=== PATIENT | female | born 1945 | race Two or more races ===

== ENCOUNTER 2022-03-04 17:48 | Emergency (ER) | payer OTHER ==
[~2022-03-04] VITALS: Ht 152.4 cm; Wt 58.1 kg
[2022-03-04] MEDS ORDERED: LOSARTAN (18:25)
[2022-03-04] MEDS ORDERED: SYNTHROID (18:26)
[2022-03-04] MEDS ORDERED: ATORVASTATIN (18:26)
[2022-03-04] MEDS ORDERED: OMEPRAZOLE (18:27)
[2022-03-05] MEDS ORDERED: PEPCID40 MG PO (02:58)
[2022-03-05] MEDS ORDERED: INTESTINEX680 M1 PO (02:58)
[2022-03-05] MEDS ORDERED: ONDANSETRON ODT4 MG PO (02:58)
== END 2022-03-05 03:24 ==
LOC: ER 17:48
DX: K52.9 Noninfective gastroenteritis and colitis, unspecified (principal); I10 Essential (primary) hypertension; E03.9 Hypothyroidism, unspecified; Z88.0 Allergy status to penicillin; E78.00 Pure hypercholesterolemia, unspecified